=== PATIENT | male | born 1935 | race Caucasian/White ===

== ENCOUNTER 2023-12-11 15:14 | Inpatient (IN) | payer OTHER ==
[~2023-12-11] VITALS: Ht 175.3 cm; Wt 75.0 kg
[2023-12-11 15:20] VITALS: BP_SYST 122; PULSE 88; RESP 22; TEMP 97.2; O2SAT 98
[2023-12-11 15:58] LABS: RED BLOOD CELL COUNT(AUTO) 4.43 MIL/uL (4.2-6.2); RED CELL DISTRIBUTION WIDTH 14.8 % (9.0-15.0)
[2023-12-11 16:04] LABS: BASOPHILS # (AUTO) 0.1 K/uL (0.0-0.2); BASOPHILS % (AUTO) 0.7 % (0.0-2.0); EOSINOPHILS # (AUTO) 0.1 K/uL (0.0-0.4); HEMATOCRIT 40.2 % (36-54); HEMOGLOBIN 13.9 g/dL (14.0-18.0); LYMPHOCYTES # (AUTO) 1.4 K/uL (1.0-5.5); LYMPHOCYTES % (AUTO) 10.4 % (20.5-51.5); MEAN CORPUSCULAR HEMOGLOBIN 31 pg (27-31); MEAN CORPUSCULAR HGB CONC 35 % (32-36); MEAN CORPUSCULAR VOLUME 91 fL (79.0-98.0); MONOCYTES # (AUTO) 1.1 K/uL (0.0-1.0); MONOCYTES % (AUTO) 7.7 % (1.7-9.3); NEUTROPHILS # (AUTO) 11.2 K/uL (1.8-7.7); NEUTROPHILS % (AUTO) 80.2 % (40.0-70.0); PLATELET COUNT (AUTO) 218 K/uL (130-430)
[2023-12-11 16:12] LABS: ALANINE AMINOTRANSFERASE 19 U/L (12-78); ALBUMIN 3.3 g/dL (3.4-4.8); ANION GAP 9 (5-15); ASPARTATE AMINOTRANSFERASE 17 U/L (10-37); CALCIUM 9.8 mg/dL (8.4-11.0); CARBON DIOXIDE 26 mmol/L (23-29); CHLORIDE 102 mmol/L (98-107); CREATININE 1.05 mg/dL (0.55-1.30); GLUCOSE 295 mg/dL (74-106); POTASSIUM 4.2 mmol/L (3.5-5.1); PROTHROMBIN TIME 10.8 SECS (9.5-12.5); SODIUM SERUM 137 mmol/L (136-145); TOTAL BILIRUBIN 0.4 mg/dL (0.0-1.0); TOTAL PROTEIN, SERUM 7.1 g/dL (6.4-8.3); UREA NITROGEN, BLOOD 13 mg/dL (8-21)
[2023-12-11 16:14] LABS: BILIRUBIN,DIRECT 0.1 mg/dL (0.0-0.3); CREATINE KINASE, TOTAL 58 U/L (39-308)
[2023-12-11 16:16] LABS: BILIRUBIN,URINE NEGATIVE (NEGATIVE); BLOOD, URINE NEGATIVE (NEGATIVE); CLARITY/URINE CLEAR (CLEAR); COLOR,URINE YELLOW (YELLOW); GLUCOSE,URINE 3+ (NEGATIVE); KETONES,URINE NEGATIVE (NEGATIVE); LEUKOCYTE ESTERASE ,URINE NEGATIVE (NEGATIVE); NITRITE, URINE NEGATIVE (NEGATIVE); PH,URINE 5.5 (5.0-8.0); PROTEIN URINE NEGATIVE (NEGATIVE); UROBILINOGEN,URINE 0.2 (0.2-1.0)
[2023-12-11 16:49] LABS: RBC,URINE 0-3 /HPF (0-3); WBC,URINE 0-3 /HPF (0-3)
[2023-12-11 16:50] LABS: BACTERIA,URINE RARE /HPF (None Seen); MUCUS,URINE 1+ /LPF (None Seen)
[2023-12-11] MEDS: MORPHINE 2 MG/ML INJ. SYRINGE IVP ONE (17:31)
[2023-12-11] MEDS ORDERED: LORazepam 2 MG/ML VIAL IVP PRN (17:45)
[2023-12-11] MEDS ORDERED: ONDANSETRON HCL 4 MG/2 ML VIAL IVP PRN (17:45)
[2023-12-11] MEDS: NACL 0.9% 1,000 ML IV SCH (18:16)
[2023-12-11] MEDS ORDERED: ATOR20TA64 PO (18:24)
[2023-12-11] MEDS ORDERED: OMEP20CA15 PO (18:24)
[2023-12-11] MEDS ORDERED: OMEG-36 PO (18:24)
[2023-12-11] MEDS ORDERED: ACET325T53 PO (18:24)
[2023-12-11] MEDS ORDERED: METF-381 PO (18:24)
[2023-12-11] MEDS ORDERED: LANTUS (18:24)
[2023-12-11] MEDS ORDERED: SITA100T11 PO (18:24)
[2023-12-11] MEDS ORDERED: BETA1TAB20 PO (18:24)
[2023-12-11] MEDS ORDERED: LISI2.5T48 PO (18:24)
[2023-12-11 21:00] VITALS: BP_SYST 135; PULSE 89; RESP 20; TEMP 98.3; O2SAT 96
[2023-12-12 02:20] VITALS: BP_SYST 139; PULSE 79; RESP 18; TEMP 97.5; O2SAT 96
[2023-12-12] MEDS ORDERED: INSU100V9 SQ (06:32)
[2023-12-12 07:37] LABS: BASOPHILS # (AUTO) 0.1 K/uL (0.0-0.2); BASOPHILS % (AUTO) 0.7 % (0.0-2.0); EOSINOPHILS # (AUTO) 0.2 K/uL (0.0-0.4); EOSINOPHILS % (AUTO) 2.5 % (0.0-4.0); HEMOGLOBIN 14.1 g/dL (14.0-18.0); LYMPHOCYTES # (AUTO) 1.6 K/uL (1.0-5.5); LYMPHOCYTES % (AUTO) 18.1 % (20.5-51.5); MEAN CORPUSCULAR HEMOGLOBIN 31 pg (27-31); MEAN CORPUSCULAR HGB CONC 35 % (32-36); MEAN CORPUSCULAR VOLUME 91 fL (79.0-98.0); MONOCYTES # (AUTO) 1.2 K/uL (0.0-1.0); NEUTROPHILS # (AUTO) 5.6 K/uL (1.8-7.7); NEUTROPHILS % (AUTO) 64.7 % (40.0-70.0); PLATELET COUNT (AUTO) 206 K/uL (130-430); RED BLOOD CELL COUNT(AUTO) 4.52 MIL/uL (4.2-6.2); RED CELL DISTRIBUTION WIDTH 14.8 % (9.0-15.0); WHITE BLOOD COUNT (AUTO) 8.7 K/uL (4.8-10.8)
[2023-12-12 08:08] VITALS: BP_SYST 120; PULSE 76; RESP 18; TEMP 97.1; O2SAT 95
[2023-12-12 08:14] LABS: ALANINE AMINOTRANSFERASE 20 U/L (12-78); ALBUMIN 3.2 g/dL (3.4-4.8); ANION GAP 6 (5-15); ASPARTATE AMINOTRANSFERASE 14 U/L (10-37); CALCIUM 9.4 mg/dL (8.4-11.0); CARBON DIOXIDE 31 mmol/L (23-29); CHLORIDE 103 mmol/L (98-107); CREATININE 0.88 mg/dL (0.55-1.30); GLUCOSE 232 mg/dL (74-106); PHOSPHORUS 2.5 mg/dL (2.7-4.5); POTASSIUM 4.2 mmol/L (3.5-5.1); SODIUM SERUM 140 mmol/L (136-145); TOTAL BILIRUBIN 0.8 mg/dL (0.0-1.0); UREA NITROGEN, BLOOD 10 mg/dL (8-21)
[2023-12-12] MEDS: MORPHINE 2 MG/ML INJ. SYRINGE IVP PRN (08:18)
[2023-12-12] MEDS ORDERED: INSULIN REGULAR, HUMAN 100 UNITS/ML, 3 ML VIAL (humuLIN R) SUBCUT PRN (08:30)
[2023-12-12 10:34] VITALS: O2SAT 95
[2023-12-12 11:21] LABS: PROTHROMBIN TIME 10.8 SECS (9.5-12.5)
[2023-12-12 12:36] VITALS: BP_SYST 125; PULSE 77; RESP 20; TEMP 97.2; O2SAT 97
[2023-12-12] MEDS: HEPARIN SODIUM,PORCINE 5,000 UNITS/ML VIAL SUBCUT ONE (14:50)
[2023-12-12 16:47] VITALS: BP_SYST 121; PULSE 75; RESP 18; TEMP 98; O2SAT 96
[2023-12-12] MEDS: POLYETHYLENE GLYCOL 3350, 17 GM/ POWD.PACK PO ONE (17:51)
[2023-12-12 20:00] VITALS: BP_SYST 122; PULSE 69; RESP 18; TEMP 97.9; O2SAT 95
[2023-12-12] MEDS: HEPARIN SODIUM,PORCINE 5,000 UNITS/ML VIAL SUBCUT SCH (21:37)
[2023-12-13 00:08] VITALS: BP_SYST 130; PULSE 70; RESP 18; TEMP 97.6; O2SAT 93
[2023-12-13 08:00] VITALS: BP_SYST 135; PULSE 68; RESP 18; TEMP 97.9; O2SAT 94
[2023-12-13] MEDS: POLYETHYLENE GLYCOL 3350, 17 GM/ POWD.PACK PO SCH (08:10)
[2023-12-13 12:31] VITALS: BP_SYST 132; PULSE 79; RESP 17; TEMP 97.5; O2SAT 95
[2023-12-13 13:48] LABS: BASOPHILS # (AUTO) 0.1 K/uL (0.0-0.2); EOSINOPHILS # (AUTO) 0.2 K/uL (0.0-0.4); EOSINOPHILS % (AUTO) 2.2 % (0.0-4.0); HEMOGLOBIN 13.6 g/dL (14.0-18.0); LYMPHOCYTES # (AUTO) 1.1 K/uL (1.0-5.5); LYMPHOCYTES % (AUTO) 14.6 % (20.5-51.5); MEAN CORPUSCULAR HEMOGLOBIN 31 pg (27-31); MEAN CORPUSCULAR HGB CONC 35 % (32-36); MEAN CORPUSCULAR VOLUME 90 fL (79.0-98.0); MONOCYTES # (AUTO) 0.9 K/uL (0.0-1.0); MONOCYTES % (AUTO) 11.8 % (1.7-9.3); NEUTROPHILS # (AUTO) 5.5 K/uL (1.8-7.7); NEUTROPHILS % (AUTO) 70.4 % (40.0-70.0); PLATELET COUNT (AUTO) 194 K/uL (130-430); RED BLOOD CELL COUNT(AUTO) 4.32 MIL/uL (4.2-6.2); RED CELL DISTRIBUTION WIDTH 14.6 % (9.0-15.0); WHITE BLOOD COUNT (AUTO) 7.8 K/uL (4.8-10.8)
[2023-12-13 14:13] LABS: ALANINE AMINOTRANSFERASE 16 U/L (12-78); ANION GAP 8 (5-15); ASPARTATE AMINOTRANSFERASE 18 U/L (10-37); CALCIUM 9.3 mg/dL (8.4-11.0); CARBON DIOXIDE 28 mmol/L (23-29); CHLORIDE 107 mmol/L (98-107); CREATININE 1.07 mg/dL (0.55-1.30); GLUCOSE 263 mg/dL (74-106); POTASSIUM 4.3 mmol/L (3.5-5.1); SODIUM SERUM 143 mmol/L (136-145); TOTAL BILIRUBIN 0.6 mg/dL (0.0-1.0); TOTAL PROTEIN, SERUM 6.9 g/dL (6.4-8.3); UREA NITROGEN, BLOOD 11 mg/dL (8-21)
[2023-12-13 16:25] VITALS: BP_SYST 119; PULSE 80; RESP 16; TEMP 98; O2SAT 95
[2023-12-13 20:00] VITALS: BP_SYST 109; PULSE 74; RESP 18; TEMP 97.8; O2SAT 92
[2023-12-14 00:44] VITALS: BP_SYST 163; PULSE 78; RESP 18; TEMP 98.4; O2SAT 96
[2023-12-14 08:00] VITALS: BP_SYST 118; PULSE 70; RESP 18; TEMP 97.7; O2SAT 93
[2023-12-14 09:32] VITALS: O2SAT 93
[2023-12-14] MEDS ORDERED: ACETAMINOPHEN 325 MG TABLET PO PRN (11:15)
[2023-12-14] MEDS ORDERED: OMEPRAZOLE Non-Formulary 20 MG CAPSULE.DR PO SCH (11:15)
[2023-12-14 12:07] VITALS: BP_SYST 124; PULSE 67; RESP 18; TEMP 98.2
[2023-12-14 12:09] LABS: BASOPHILS % (AUTO) 0.6 % (0.0-2.0); EOSINOPHILS # (AUTO) 0.2 K/uL (0.0-0.4); EOSINOPHILS % (AUTO) 2.1 % (0.0-4.0); HEMATOCRIT 39.9 % (36-54); HEMOGLOBIN 13.8 g/dL (14.0-18.0); LYMPHOCYTES # (AUTO) 1.3 K/uL (1.0-5.5); LYMPHOCYTES % (AUTO) 17.1 % (20.5-51.5); MEAN CORPUSCULAR HEMOGLOBIN 32 pg (27-31); MEAN CORPUSCULAR HGB CONC 35 % (32-36); MEAN CORPUSCULAR VOLUME 91 fL (79.0-98.0); MONOCYTES # (AUTO) 0.8 K/uL (0.0-1.0); NEUTROPHILS # (AUTO) 5.3 K/uL (1.8-7.7); NEUTROPHILS % (AUTO) 70.2 % (40.0-70.0); PLATELET COUNT (AUTO) 201 K/uL (130-430); RED BLOOD CELL COUNT(AUTO) 4.39 MIL/uL (4.2-6.2); RED CELL DISTRIBUTION WIDTH 14.4 % (9.0-15.0); WHITE BLOOD COUNT (AUTO) 7.6 K/uL (4.8-10.8)
[2023-12-14 12:16] LABS: ALANINE AMINOTRANSFERASE 17 U/L (12-78); ANION GAP 7 (5-15); ASPARTATE AMINOTRANSFERASE 14 U/L (10-37); CALCIUM 9.3 mg/dL (8.4-11.0); CARBON DIOXIDE 29 mmol/L (23-29); CHLORIDE 103 mmol/L (98-107); CREATININE 0.94 mg/dL (0.55-1.30); GLUCOSE 257 mg/dL (74-106); POTASSIUM 4.5 mmol/L (3.5-5.1); SODIUM SERUM 139 mmol/L (136-145); TOTAL BILIRUBIN 0.7 mg/dL (0.0-1.0); UREA NITROGEN, BLOOD 11 mg/dL (8-21)
[2023-12-14] MEDS: metFORMIN HCL 500 MG TABLET PO ONE (12:16)
[2023-12-14] MEDS: lisinopriL 5 MG TABLET PO ONE (12:16)
[2023-12-14] MEDS: INSULIN REGULAR, HUMAN 100 UNITS/ML, 3 ML VIAL (humuLIN R) SUBCUT PRN (12:22)
[2023-12-14 16:02] VITALS: BP_SYST 123; PULSE 124; RESP 22; TEMP 97.9; O2SAT 94
[2023-12-14] MEDS: metFORMIN HCL 500 MG TABLET PO SCH (17:15)
[2023-12-14] MEDS ORDERED: ceFAZolin SODIUM 2 GM VIAL ONE (17:59)
[2023-12-14] MEDS ORDERED: LR 1,000 ML IV.SOLN IV ONE (17:59)
[2023-12-14] MEDS ORDERED: WATER FOR IRRIGATION,STERILE 1,000 ML IRRIG.SOLN IR ONE (17:59)
[2023-12-14] MEDS ORDERED: ROCURONIUM BROMIDE 10 MG/ML (ZEMURON) ONE (17:59)
[2023-12-14] MEDS ORDERED: SUGAMMADEX SODIUM 200 MG/2 ML VIAL IV ONE (17:59)
[2023-12-14] MEDS ORDERED: NS IRRIG SOLN 1000 ML IR ONE (17:59)
[2023-12-14] MEDS ORDERED: PROPOFOL 200MG/ 20ML VIAL (DIPRIVAN) IV ONE (17:59)
[2023-12-14] MEDS ORDERED: SEVOFLURANE 15 MIN GAS INH ONE (17:59)
[2023-12-14] MEDS ORDERED: ONDANSETRON HCL 4 MG/2 ML VIAL ONE (17:59)
[2023-12-14] MEDS ORDERED: BUPIVACAINE /PF 0.25% 30 ML VIAL INJ ONE (17:59)
[2023-12-14] MEDS: fentaNYL CITRATE/PF 100 MCG/2 ML AMP ONE (18:07)
[2023-12-14] MEDS: HYDROmorphone 2 MG/ML VIAL ONE (18:07)
[2023-12-14] MEDS: ACETAMINOPHEN I.V. 1000 MG 100 ML IV ONE (18:07)
[2023-12-14] MEDS ORDERED: NALOXONE HCL 0.4 MG/ML AMP (NARCAN) IVP PRN ×4 (19:30)
[2023-12-14] MEDS ORDERED: HYDROmorphone 1 MG/ML INJ. CARTRIDGE IVP PRN ×3 (19:30)
[2023-12-14] MEDS ORDERED: ONDANSETRON HCL 4 MG/2 ML VIAL IVP PRN (19:30)
[2023-12-14] MEDS ORDERED: hydrALAZINE HCL 20 MG/ML VIAL IV PRN (19:30)
[2023-12-14 21:00] VITALS: O2SAT 96
[2023-12-14] MEDS: CEFAZOLIN 2 GM IVPB PREMIX 50 ML IV SCH (21:37)
[2023-12-15 00:11] VITALS: BP_SYST 110; PULSE 83; RESP 17; TEMP 96.5; O2SAT 96
[2023-12-15 08:10] VITALS: BP_SYST 106; PULSE 110; RESP 20; TEMP 98.7
[2023-12-15 08:30] VITALS: O2SAT 90
[2023-12-15 08:45] LABS: BASOPHILS # (AUTO) 0.1 K/uL (0.0-0.2); BASOPHILS % (AUTO) 0.5 % (0.0-2.0); EOSINOPHILS # (AUTO) 0.1 K/uL (0.0-0.4); EOSINOPHILS % (AUTO) 0.9 % (0.0-4.0); HEMATOCRIT 39.8 % (36-54); HEMOGLOBIN 13.4 g/dL (14.0-18.0); LYMPHOCYTES % (AUTO) 8.2 % (20.5-51.5); MEAN CORPUSCULAR HEMOGLOBIN 31 pg (27-31); MEAN CORPUSCULAR HGB CONC 34 % (32-36); MEAN CORPUSCULAR VOLUME 93 fL (79.0-98.0); MONOCYTES # (AUTO) 0.8 K/uL (0.0-1.0); MONOCYTES % (AUTO) 6.8 % (1.7-9.3); NEUTROPHILS # (AUTO) 10.3 K/uL (1.8-7.7); NEUTROPHILS % (AUTO) 83.6 % (40.0-70.0); PLATELET COUNT (AUTO) 236 K/uL (130-430); RED BLOOD CELL COUNT(AUTO) 4.28 MIL/uL (4.2-6.2); RED CELL DISTRIBUTION WIDTH 14.7 % (9.0-15.0); WHITE BLOOD COUNT (AUTO) 12.4 K/uL (4.8-10.8)
[2023-12-15 09:00] VITALS: BP_SYST 117; PULSE 110; RESP 18; TEMP 99.6; O2SAT 93
[2023-12-15 09:04] LABS: ALANINE AMINOTRANSFERASE 18 U/L (12-78); ALBUMIN 2.9 g/dL (3.4-4.8); ANION GAP 10 (5-15); ASPARTATE AMINOTRANSFERASE 21 U/L (10-37); CALCIUM 8.7 mg/dL (8.4-11.0); CARBON DIOXIDE 25 mmol/L (23-29); CHLORIDE 106 mmol/L (98-107); CREATININE 1.11 mg/dL (0.55-1.30); GLUCOSE 370 mg/dL (74-106); POTASSIUM 4.8 mmol/L (3.5-5.1); SODIUM SERUM 141 mmol/L (136-145); TOTAL BILIRUBIN 0.6 mg/dL (0.0-1.0); TOTAL PROTEIN, SERUM 6.8 g/dL (6.4-8.3); UREA NITROGEN, BLOOD 11 mg/dL (8-21)
[2023-12-15] MEDS: lisinopriL 5 MG TABLET PO SCH (10:02)
[2023-12-15] MEDS: ATORVASTATIN 20 MG TABLET PO SCH (10:02)
[2023-12-15] MEDS: PANTOPRAZOLE SODIUM 40 MG TAB PO SCH (10:02)
[2023-12-15 12:59] VITALS: BP_SYST 117; PULSE 77; RESP 18; TEMP 99.6; O2SAT 93
[2023-12-15 14:30] VITALS: BP_SYST 117; PULSE 77; RESP 18; TEMP 99.6
== END 2023-12-15 15:00 | DRG 481 ==
LOC: SED 15:14 → STU 17:37 → SMU 12-14 17:28 → STU 12-14 23:00 → SMU 12-15 12:57
PROVIDERS: ADMIT Student in an Organized Health Care Education/Training Program; ATTEND Student in an Organized Health Care Education/Training Program
PROC: 0QS604Z Reposition Right Upper Femur with Internal Fixation Device, Open Approach (ICD-10-PCS; principal; 2023-12-13)
DX: S72.114A Nondisplaced fracture of greater trochanter of right femur, initial encounter for closed fracture (principal); E44.1 Mild protein-calorie malnutrition; R65.10 Systemic inflammatory response syndrome (SIRS) of non-infectious origin without acute organ dysfunction; F03.90 Unspecified dementia, unspecified severity, without behavioral disturbance, psychotic disturbance, mood disturbance, and anxiety; E11.9 Type 2 diabetes mellitus without complications; W18.39XA Other fall on same level, initial encounter; E78.5 Hyperlipidemia, unspecified; Z79.899 Other long term (current) drug therapy; Z88.8 Allergy status to other drugs, medicaments and biological substances; Y93.89 Activity, other specified; Y92.89 Other specified places as the place of occurrence of the external cause; Y99.8 Other external cause status; Z68.24 Body mass index [BMI] 24.0-24.9, adult
CPT/HCPCS: 36415; 70450-TC; 71045; 72192-TC; 73721; 76000; 80048; 80053; 80076; 81000; 81001; 81015; 82550; 82948; 83037; 83605; 83735; 84100; 84484; 85025; 85610; 85730; 86886; 86900; 86901; 87081; 93005; 93306; 97116-GP; 97530-GP; 99285; C1713; G0378; J0131; J0690; J1171; J1644; J1815; J2270; J2405; J2704; J3010; J3490; J7030; J7120

== ENCOUNTER 2023-12-19 09:54 | Inpatient (IN) | payer OTHER, MEDICAID ==
[~2023-12-19] VITALS: Ht 177.8 cm; Wt 81.6 kg
[~2023-12-19 09:54] MED LIST: ACET325T53 PO; ATOR20TA64 PO; BETA1TAB20 PO; INSU100V9 SQ; LISI2.5T48 PO; METF-381 PO; OMEG-36 PO; OMEP20CA15 PO; SITA100T11 PO
[2023-12-19 09:59] VITALS: BP_SYST 128; PULSE 98; RESP 18; TEMP 98.4; O2SAT 94
[2023-12-19 10:35] LABS: BASOPHILS % (AUTO) 0.2 % (0.0-2.0); HEMATOCRIT 41.2 % (36-54); HEMOGLOBIN 13.8 g/dL (14.0-18.0); LYMPHOCYTES # (AUTO) 0.7 K/uL (1.0-5.5); LYMPHOCYTES % (AUTO) 5.8 % (20.5-51.5); MEAN CORPUSCULAR HEMOGLOBIN 31 pg (27-31); MEAN CORPUSCULAR HGB CONC 34 % (32-36); MEAN CORPUSCULAR VOLUME 93 fL (79.0-98.0); MONOCYTES # (AUTO) 0.6 K/uL (0.0-1.0); MONOCYTES % (AUTO) 4.9 % (1.7-9.3); NEUTROPHILS # (AUTO) 11.2 K/uL (1.8-7.7); NEUTROPHILS % (AUTO) 89.1 % (40.0-70.0); PLATELET COUNT (AUTO) 296 K/uL (130-430); RED BLOOD CELL COUNT(AUTO) 4.45 MIL/uL (4.2-6.2); RED CELL DISTRIBUTION WIDTH 14.6 % (9.0-15.0); WHITE BLOOD COUNT (AUTO) 12.5 K/uL (4.8-10.8)
[2023-12-19 10:50] LABS: ALANINE AMINOTRANSFERASE 16 U/L (12-78); ALBUMIN 3.1 g/dL (3.4-4.8); ANION GAP 7 (5-15); ASPARTATE AMINOTRANSFERASE 14 U/L (10-37); BILIRUBIN,DIRECT 0.2 mg/dL (0.0-0.3); CALCIUM 10.4 mg/dL (8.4-11.0); CARBON DIOXIDE 31 mmol/L (23-29); CHLORIDE 101 mmol/L (98-107); CREATININE 1.17 mg/dL (0.55-1.30); LIPASE 26 U/L (16-77); POTASSIUM 4.8 mmol/L (3.5-5.1); SODIUM SERUM 139 mmol/L (136-145); TOTAL BILIRUBIN 0.8 mg/dL (0.0-1.0); TOTAL PROTEIN, SERUM 7.6 g/dL (6.4-8.3); UREA NITROGEN, BLOOD 18 mg/dL (8-21)
[2023-12-19] MEDS: NACL 0.9% 1,000 ML IV SCH ×2 (10:50→14:13)
[2023-12-19 10:52] LABS: GLUCOSE 516 mg/dL (74-106)
[2023-12-19] MEDS: PANTOPRAZOLE SODIUM 40 MG/VIAL (PROTONIX) IVP ONE ×2 (11:09→14:14)
[2023-12-19 11:32] LABS: BILIRUBIN,URINE NEGATIVE (NEGATIVE); BLOOD, URINE NEGATIVE (NEGATIVE); CLARITY/URINE CLEAR (CLEAR); COLOR,URINE YELLOW (YELLOW); GLUCOSE,URINE 3+ (NEGATIVE); KETONES,URINE 2+ (NEGATIVE); LEUKOCYTE ESTERASE ,URINE NEGATIVE (NEGATIVE); NITRITE, URINE NEGATIVE (NEGATIVE); PROTEIN URINE NEGATIVE (NEGATIVE)
[2023-12-19] MEDS ORDERED: HYDR-3919 PO (11:49)
[2023-12-19] MEDS ORDERED: LORazepam 2 MG/ML VIAL IVP PRN (13:45)
[2023-12-19 14:26] LABS: PROTHROMBIN TIME 10.5 SECS (9.5-12.5)
[2023-12-19] MEDS ORDERED: ACETAMINOPHEN 325 MG TABLET PO PRN (16:00)
[2023-12-19 16:07] LABS: ABG O2 SAT% ESTIMATE 94.8 % (94.0-98.0); BLOOD GAS BASE EXCESS 0.2 mmol/L (-2.0-3.0); BLOOD GAS HCO3 23.6 mmol/L (21.0-28.0); BLOOD GAS PCO2 34.2 mmHg (35.0-48.0); BLOOD GAS PH 7.456 (7.350-7.450); BLOOD GAS PO2 68.9 mmHg (83.0-108.0)
[2023-12-19 16:30] VITALS: BP_SYST 142; PULSE 77; RESP 18; TEMP 98.2; O2SAT 95
[2023-12-19] MEDS: metFORMIN HCL 500 MG TABLET PO SCH (17:53)
[2023-12-19] MEDS: INSULIN REGULAR, HUMAN 100 UNITS/ML, 3 ML VIAL (humuLIN R) SUBCUT PRN (18:31)
[2023-12-19] MEDS: lisinopriL 5 MG TABLET PO ONE (18:50)
[2023-12-19 18:56] LABS: ALLEN'S TEST POSITIVE (P)
[2023-12-19 20:00] VITALS: BP_SYST 134; PULSE 80; RESP 18; TEMP 98.1; O2SAT 95
[2023-12-19] MEDS ORDERED: PANTOPRAZOLE SODIUM 40 MG/VIAL (PROTONIX) IVP SCH (21:00)
[2023-12-19] MEDS: PANTOPRAZOLE SODIUM 40 MG/VIAL (PROTONIX) IVP SCH (21:40)
[2023-12-20] VITALS: BP_SYST 124; PULSE 89; RESP 18; TEMP 97.4; O2SAT 95
[2023-12-20 06:27] LABS: BASOPHILS # (AUTO) 0.1 K/uL (0.0-0.2); BASOPHILS % (AUTO) 1.1 % (0.0-2.0); EOSINOPHILS # (AUTO) 0.2 K/uL (0.0-0.4); EOSINOPHILS % (AUTO) 1.4 % (0.0-4.0); HEMATOCRIT 36.6 % (36-54); HEMOGLOBIN 12.3 g/dL (14.0-18.0); LYMPHOCYTES # (AUTO) 1.5 K/uL (1.0-5.5); LYMPHOCYTES % (AUTO) 14.2 % (20.5-51.5); MEAN CORPUSCULAR HEMOGLOBIN 31 pg (27-31); MEAN CORPUSCULAR HGB CONC 34 % (32-36); MEAN CORPUSCULAR VOLUME 92 fL (79.0-98.0); MONOCYTES % (AUTO) 9.3 % (1.7-9.3); NEUTROPHILS # (AUTO) 7.8 K/uL (1.8-7.7); PLATELET COUNT (AUTO) 285 K/uL (130-430); RED CELL DISTRIBUTION WIDTH 14.4 % (9.0-15.0); WHITE BLOOD COUNT (AUTO) 10.5 K/uL (4.8-10.8)
[2023-12-20 06:40] LABS: PROTHROMBIN TIME 10.9 SECS (9.5-12.5)
[2023-12-20 07:17] LABS: ALANINE AMINOTRANSFERASE 17 U/L (12-78); ALBUMIN 2.7 g/dL (3.4-4.8); ANION GAP 8 (5-15); ASPARTATE AMINOTRANSFERASE 14 U/L (10-37); CARBON DIOXIDE 27 mmol/L (23-29); CHLORIDE 108 mmol/L (98-107); CREATININE 0.91 mg/dL (0.55-1.30); GLUCOSE 274 mg/dL (74-106); PHOSPHORUS 2.8 mg/dL (2.7-4.5); POTASSIUM 3.9 mmol/L (3.5-5.1); SODIUM SERUM 143 mmol/L (136-145); TOTAL BILIRUBIN 0.7 mg/dL (0.0-1.0); TOTAL PROTEIN, SERUM 6.5 g/dL (6.4-8.3); UREA NITROGEN, BLOOD 14 mg/dL (8-21)
[2023-12-20 08:00] VITALS: BP_SYST 136; PULSE 72; RESP 24; TEMP 97.7; O2SAT 95
[2023-12-20] MEDS ORDERED: PANTOPRAZOLE SODIUM 40 MG TAB PO SCH (09:00)
[2023-12-20] MEDS: MIDAZOLAM HCL 5 MG/5 ML VIAL ONE (10:37)
[2023-12-20] MEDS: fentaNYL CITRATE/PF 100 MCG/2 ML AMP ONE (10:37)
[2023-12-20 10:51] VITALS: O2SAT 95
[2023-12-20] MEDS: lisinopriL 5 MG TABLET PO SCH (11:29)
[2023-12-20] MEDS: ATORVASTATIN 20 MG TABLET PO SCH (11:30)
[2023-12-20 12:16] LABS: BASOPHILS # (AUTO) 0.1 K/uL (0.0-0.2); BASOPHILS % (AUTO) 0.7 % (0.0-2.0); EOSINOPHILS # (AUTO) 0.1 K/uL (0.0-0.4); EOSINOPHILS % (AUTO) 1.1 % (0.0-4.0); HEMATOCRIT 37.2 % (36-54); HEMOGLOBIN 12.5 g/dL (14.0-18.0); LYMPHOCYTES # (AUTO) 1.5 K/uL (1.0-5.5); LYMPHOCYTES % (AUTO) 14.7 % (20.5-51.5); MEAN CORPUSCULAR HEMOGLOBIN 31 pg (27-31); MEAN CORPUSCULAR HGB CONC 34 % (32-36); MEAN CORPUSCULAR VOLUME 92 fL (79.0-98.0); MONOCYTES # (AUTO) 0.8 K/uL (0.0-1.0); NEUTROPHILS % (AUTO) 75.5 % (40.0-70.0); PLATELET COUNT (AUTO) 267 K/uL (130-430); RED BLOOD CELL COUNT(AUTO) 4.03 MIL/uL (4.2-6.2); RED CELL DISTRIBUTION WIDTH 14.5 % (9.0-15.0); WHITE BLOOD COUNT (AUTO) 10.6 K/uL (4.8-10.8)
[2023-12-20] MEDS: INSULIN GLARGINE 100 UNITS/ML, 10 ML VIAL SUBCUT SCH (12:56)
[2023-12-20 13:38] VITALS: BP_SYST 132; PULSE 73; RESP 16; TEMP 97.6; O2SAT 97
[2023-12-20 16:00] VITALS: BP_SYST 124; PULSE 82; RESP 18; TEMP 98.5; O2SAT 96
[2023-12-20 20:00] VITALS: BP_SYST 128; PULSE 79; RESP 18; TEMP 97.1; O2SAT 95
[2023-12-21 00:11] VITALS: BP_SYST 113; PULSE 99; RESP 16; TEMP 97.4; O2SAT 96
[2023-12-21 08:00] VITALS: O2SAT 97
[2023-12-21 09:41] LABS: BASOPHILS # (AUTO) 0.1 K/uL (0.0-0.2); BASOPHILS % (AUTO) 1.3 % (0.0-2.0); EOSINOPHILS # (AUTO) 0.6 K/uL (0.0-0.4); EOSINOPHILS % (AUTO) 5.6 % (0.0-4.0); HEMATOCRIT 36.8 % (36-54); HEMOGLOBIN 12.5 g/dL (14.0-18.0); LYMPHOCYTES # (AUTO) 1.6 K/uL (1.0-5.5); MEAN CORPUSCULAR HEMOGLOBIN 31 pg (27-31); MEAN CORPUSCULAR HGB CONC 34 % (32-36); MEAN CORPUSCULAR VOLUME 92 fL (79.0-98.0); MONOCYTES % (AUTO) 9.8 % (1.7-9.3); NEUTROPHILS # (AUTO) 6.8 K/uL (1.8-7.7); NEUTROPHILS % (AUTO) 67.3 % (40.0-70.0); PLATELET COUNT (AUTO) 263 K/uL (130-430); RED BLOOD CELL COUNT(AUTO) 4.01 MIL/uL (4.2-6.2); RED CELL DISTRIBUTION WIDTH 14.5 % (9.0-15.0); WHITE BLOOD COUNT (AUTO) 10.2 K/uL (4.8-10.8)
[2023-12-21 10:15] LABS: ALANINE AMINOTRANSFERASE 16 U/L (12-78); ALBUMIN 2.8 g/dL (3.4-4.8); ANION GAP 8 (5-15); ASPARTATE AMINOTRANSFERASE 14 U/L (10-37); CALCIUM 8.9 mg/dL (8.4-11.0); CARBON DIOXIDE 26 mmol/L (23-29); CHLORIDE 107 mmol/L (98-107); CREATININE 1.04 mg/dL (0.55-1.30); GLUCOSE 248 mg/dL (74-106); POTASSIUM 3.8 mmol/L (3.5-5.1); SODIUM SERUM 141 mmol/L (136-145); TOTAL BILIRUBIN 0.6 mg/dL (0.0-1.0); TOTAL PROTEIN, SERUM 6.8 g/dL (6.4-8.3); UREA NITROGEN, BLOOD 11 mg/dL (8-21)
[2023-12-21] MEDS: INSULIN GLARGINE 100 UNITS/ML, 10 ML VIAL SUBCUT SCH (10:23)
[2023-12-21 13:08] VITALS: BP_SYST 114; PULSE 78; RESP 18; TEMP 97.9; O2SAT 97
[2023-12-21] MEDS ORDERED: PANT20TA2 PO (13:08)
[2023-12-21 16:23] VITALS: BP_SYST 112; PULSE 75; RESP 18; TEMP 97.1; O2SAT 97
[2023-12-21 17:20] VITALS: BP_SYST 116; PULSE 70; RESP 20; TEMP 98.6; O2SAT 94
== END 2023-12-21 17:42 | DRG 368 ==
LOC: SED 09:54 → SMU 13:35
PROVIDERS: ADMIT Student in an Organized Health Care Education/Training Program; ATTEND Student in an Organized Health Care Education/Training Program
PROC: 0DB68ZX Excision of Stomach, Via Natural or Artificial Opening Endoscopic, Diagnostic (ICD-10-PCS; principal; 2023-12-20 12:30)
DX: K20.91 Esophagitis, unspecified with bleeding (principal); K29.71 Gastritis, unspecified, with bleeding; E11.65 Type 2 diabetes mellitus with hyperglycemia; I10 Essential (primary) hypertension; E78.5 Hyperlipidemia, unspecified; F03.90 Unspecified dementia, unspecified severity, without behavioral disturbance, psychotic disturbance, mood disturbance, and anxiety; Z79.899 Other long term (current) drug therapy; Z88.8 Allergy status to other drugs, medicaments and biological substances
CPT/HCPCS: 36415; 36600; 43239; 71045; 80048; 80053; 80076; 81001; 81003; 82803; 82948; 83605; 83690; 83735; 84100; 85025; 85610; 85730; 87081; 88305; 88312; 88313; 93005; 94760; 99285; J1815; J2250; J2470; J3010; J7030